=== PATIENT | female | born 1955 | race Caucasian/White ===

== ENCOUNTER 2018-06-10 21:16 | Emergency (ER) | payer BC, MEDICARE ==
[~2018-06-10] VITALS: Ht 162.6 cm; Wt 99.8 kg
[~2018-06-10 21:16] MED LIST: ACET-685 PO; DULO60CA7 PO; ESOM40CA PO; MAGN1TAB28 PO; NITR100C58 PO; OLME1TAB21 PO; PREG225C PO; RIVA20TA PO; SILV20CR13 TP
[2018-06-10] MEDS ORDERED: NS 1000ML 1,000 ML STA (21:22)
--- NOTE | 2018-06-10 21:29 | ER.PDOC ---
General Chief Complaint: Requesting Medical Care Stated Complaint: OVERDOSE TRAVEL OUT OF US: No Time seen by MD: 21:20 Source: patient, EMS Exam Limitations: no limitations History of Present Illness Initial Comments Pt is paraplegic, on a morphine pump. Her pump was adjusted today and she felt that after that change in dose she began feeling sleepy, when her came in he could not wake her up. EMS gave her two doses of narcane and she regained her consciousness Timing/Duration: 4-6 hours Severity: moderate Associated Symptoms: weakness Allergies: Uncoded Allergies: PENICILLIN (Allergy, Severe, BREAKS OUT IN RASH,FAINTING, 06/24/16) TAPE (Allergy, Intermediate, BREAKS OUT IN BLISTERS, 06/24/16) Home Meds Reported Medications Rivaroxaban (XARELTO) 20 Mg Tablet, 1 TAB PO DAILY, #30 TAB 11 Refills 06/24/16 Silver Sulfadiazine (SILVADENE) 20 Gm Cream..g., 1 APPLIC TP BID, #50 GRAM 06/24/16 Esomeprazole Magnesium (NEXIUM) 40 Mg Capsule.dr, 1 CAP PO BID, #30 CAP 5 Refills 06/24/16 Nitrofurantoin Monohyd/M-Cryst (MACROBID 100 MG CAPSULE) 100 Mg Capsule, 1 CAP PO BID, #10 CAP 06/24/16 Pregabalin (LYRICA) 225 Mg Capsule, 225 MG PO BID, CAPSULE 06/24/16 Magnesium Salicylate/Caffeine (Diurex Water Pills) 1 Each Tablet, 1 EACH PO BID , TABLET 06/24/16 Duloxetine Hcl (CYMBALTA) 60 Mg Capsule.dr, 1 CAP PO DAILY, #90 CAP 3 Refills 06/24/16 Olmesartan/Hydrochlorothiazide (BENICAR HCT 20-12.5 MG TABLET) 1 Each Tablet, 1 TAB PO DAILY, #30 TAB 5 Refills 06/24/16 Acetaminophen With Codeine (TYLENOL WITH CODEINE #3 TABLET) 1 Each Tablet, 2 TAB PO Q6, #30 TAB 06/24/16 Review of Systems Constitutional: malaise EENTM: no symptoms reported Respiratory: no symptoms reported Cardiovascular: no symptoms reported Gastrointestinal: no symptoms reported Genitourinary: no symptoms reported All Other Systems: Reviewed and Negative Physical Exam General Appearance: No Apparent Distress, WD/WN EENT: eyes nml inspection, nml ENT inspection, pharynx nml Neck: Non-Tender, Full Range of Motion, Supple, Normal Inspection Respiratory: chest non-tender, lungs clear, normal breath sounds CVS: reg rate & rhythm, no murmur, no gallop Gastrointestinal: Normal Bowel Sounds, No Organomegaly, No Pulsatile Mass Back: Normal Inspection, No CVA Tenderness 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, Other (paraplegic) Skin: Normal Color Lymphatic: No Adenopathy Results/Orders Results/Orders Laboratory Tests Test 06/10/18 00:00 06/10/18 21:25 Urine Collection Type UNKNOWN Urine Color YELLOW (YELLOW) Urine Appearance CLEAR (CLEAR) Urine Bilirubin NEGATIVE MG/DL (NEGATIVE) Urine Ketones NEGATIVE (NEGATIVE) Urine Specific [place] 1.015 (1.005-1.035) Urine pH 6 (5.0-6.0) Urine Protein NEGATIVE (NEGATIVE) Urine Urobilinogen NORMAL (NEGATIVE) Urine Nitrate NEGATIVE (NEGATIVE) Urine Leukocyte Esterase NEGATIVE (NEGATIVE) Urine Blood NEGATIVE (NEGATIVE) Urine Glucose NORMAL (NEGATIVE) Urine Opiates, Qualitative NEGATIVE ng/mL (CUT-OFF:300) Urine Methadone, Qualitative NEGATIVE ng/mL (CUT-OFF:300) Urine Amphetamine Qualitative NEGATIVE ng/mL (CUTOFF:1000) Urine Barbiturates, Qualitative NEGATIVE ng/mL (CUT-OFF:200) Urine Phencyclidine Screen NEGATIVE ng/mL (CUT-OFF:25) Urine MDMA (Ecstasy), Qualitative NEGATIVE ng/mL (CUT-OFF:300) Urine Benzodiazepines Screen NEGATIVE ng/mL (CUT-OFF:200) Urine Cocaine Qualitative NEGATIVE ng/mL (CUT-OFF:300) Ur Tetrahydrocannabinol (THC) Scrn NEGATIVE ng/mL (CUT-OFF:50) White Blood Count 17.2 10^3/uL (4.5-11.0) Red Blood Count 4.95 10^6/uL (4.00-5.20) Hemoglobin 13.0 g/dL (12.0-15.0) Hematocrit 40.9 % (36.0-46.0) Mean Corpuscular Volume 82.6 fL (78-100) Mean Corpuscular Hemoglobin 26.3 pg (26-34) Mean Corpuscular Hemoglobin Concent 31.8 g/dL (33-37) Red Cell Distribution Width 17.3 % (11.5-14.5) Platelet Count 379 10^3/uL (150-400) Mean Platelet Volume 9.3 fL (7.8-11.0) Neutrophils (%) (Auto) 79.5 % (41.0-85.0) Lymphocytes (%) (Auto) 12.5 % (24.0-44.0) Monocytes (%) (Auto) 6.2 % (5.0-12.0) Neutrophils # (Auto) 13.7 10^3/uL (1.8-7.7) Lymphocytes # (Auto) 2.2 10^3/uL (1.0-4.8) Monocytes # (Auto) 1.1 10^3/uL (0.3-0.8) Absolute Immature Granulocyte (auto 0.03 10^3 u/L (0-2) Eosinophils % 1.3 % (0.0-5.0) Basophils % 0.3 % (0.0-0.2) Basophils # 0.1 10^3/uL (0.0-0.1) Eosinophil Count 0.2 10^3/uL (0.0-0.2) Sodium Level 136 mmol/L (132-145) Potassium Level 3.8 mmol/L (3.6-5.2) Chloride Level 97.0 mmol/L (96-109) Carbon Dioxide Level 33.4 mmol/L (20.0-32) Anion Gap 9.4 Blood Urea Nitrogen 10 mg/dL (7-18) Creatinine 0.71 mg/dL (0.59-1.40) Estimated GFR () 101.3 (>/=60) BUN/Creatinine Ratio 14.0 Glucose Level 128 mg/dL (70-110) Calcium Level 9.2 mg/dL (8.4-10.5) Total Bilirubin 0.4 mg/dL (0.2-1.0) Aspartate Amino Transf (AST/SGOT) 19 U/L (0-35) Alanine Aminotransferase (ALT/SGPT) 36 U/L (12-78) Alkaline Phosphatase 79 U/L (50-136) Troponin I < 0.02 ng/mL (0.00-0.05) Total Protein 8.1 g/dL (6.4-8.2) Albumin 3.8 g/dL (3.4-5.0) Globulin 4.3 Salicylates Level 3.4 mg/dL (2.8-20.0) Acetaminophen Level < 2 ug/mL (10-30) Serum Alcohol < 3 mg/dL (3-50) Percent Immature Gran (Cell Imm) 0.20 % (0.00-0.50) Administered Medications Medications (Trade) Dose Ordered Sig/Kevin Route PRN Reason Start Time Stop Time Status Last Admin Dose Admin Sodium Chloride 1,000 ml @ 1,000 mls/hr Q1H STAT IV 06/10/18 21:22 06/10/18 22:21 DC 06/10/18 22:19 Departure Time of Disposition: 00:32 Disposition: 01 HOME, SELF-CARE Impression: Primary Impression: Altered mental status Additional Impression: Morphine overdose Condition: Stable Patient Instructions: Altered Mental Status Referrals: PCP,UNKNOWN (PCP) PRIMARY CARE PROVIDER Duration or Time Spent with Pa: 20 ROXANE BROWN MD Jun 10, 2018 21:29
--- NOTE | 2018-06-10 21:38 | PCM.EKG ---
[facility] Test Date: 2018-06-10 Test Time: 21:42:13 Pat Name: ROBYN MCKEON Department: Room: Gender: F Line Repairer Tower: [place] : [id number] Requested By: ROXANE FITZGERALD Order Number: [id number] Reading MD: Roxane Fitzgerald Measurements Intervals [place] Rate: 65 P: 75 MD: 160 QRS: 78 QRSD: 82 T: 70 QT: 394 QTc: 409 Interpretive Statements Normal sinus rhythm Normal ECG No previous ECG available for comparison Electronically Signed On 06-11-2018 0:50:27 CDT by Roxane Fitzgerald Please click the below link to view image of tracing.
[2018-06-10 21:44] LABS: BASOPHIL # 0.1 10^3/uL (0.0-0.1); BASOPHIL % 0.3 % (0.0-0.2); EOSINOPHIL # 0.2 10^3/uL (0.0-0.2); EOSINOPHIL % 1.3 % (0.0-5.0); LYMPHOCYTES # 2.2 10^3/uL (1.0-4.8); LYMPHOCYTES % 12.5 % (24.0-44.0); MEAN CELL HGB 26.3 pg (26-34); MEAN CELL HGB CONCENTRATION 31.8 g/dL (33-37); MEAN CORP VOLUME 82.6 fL (78-100); MEAN PLATELET VOLUME 9.3 fL (7.8-11.0); MONOCYTES # 1.1 10^3/uL (0.3-0.8); MONOCYTES % 6.2 % (5.0-12.0); NEUTROPHIL # 13.7 10^3/uL (1.8-7.7); NEUTROPHILS % 79.5 % (41.0-85.0); RED CELL DISTRIBUTION WIDTH 17.3 % (11.5-14.5); WHITE BLOOD CELL 17.2 10^3/uL (4.5-11.0)
[2018-06-10 22:01] VITALS: BP 115/51
[2018-06-10 22:06] LABS: ALANINE AMINOTRANSFERASE(ML) 36 U/L (12-78); ALKALINE PHOSPHATASE 79 U/L (50-136); ASPARTATE AMINO TRANSFERASE 19 U/L (0-35); CALCIUM 9.2 mg/dL (8.4-10.5); CARBON DIOXIDE 33.4 mmol/L (20.0-32); GLUCOSE 128 mg/dL (70-110)
[2018-06-10 22:07] LABS: ACETAMINOPHEN < 2 ug/mL (10-30)
[2018-06-10] MEDS ORDERED: NS 1000ML 1,000 ML ONE (22:15)
[2018-06-10 22:49] LABS: BILIRUBIN,URINE NEGATIVE (NEGATIVE); UROBILINOGEN,URINE NORMAL (NEGATIVE)
--- NOTE | 2018-06-10 22:50 | NUR ---
[facility] MED[facility] PT ASKED ABOUT TAKING HER NIGHT MEDICINES AT THIS TIME. DR. BROWN STATED PT COULD TAKE HER HOME MEDS.
[2018-06-10 22:54] LABS: APPEARANCE,URINE CLEAR (CLEAR); UA COLOR YELLOW (YELLOW)
[2018-06-10 23:01] VITALS: BP 109/60
[2018-06-11 00:02] VITALS: BP 115/59
--- NOTE | 2018-06-11 00:30 | DIREP ---
PROCEDURE:CT HEAD OR BRAIN W/O CONTRAST COMPARISON:GERALDO Estes, CT-BRAIN WO CONTRAST, 10/19/2016, 01:41 PM. INDICATIONS:AMS TECHNIQUE:CT images were created without intravenous contrast. FINDINGS: VENTRICLES:The ventricles are normal in size and configuration. CEREBRUM:Normal cerebral morphology with appropriate abraham white matter differentiation. CEREBELLUM:Negative. BRAINSTEM:Negative. BASAL CISTERNS:Negative. HEMORRHAGE:No MASS LESION:Partial calcified extra-axial mass lesion adjacent to the right parietal lobe near the vertex measuring 1.6 x 1.2 cm ACUTE INFARCT:No SKULL:Normal. SINUSES:Normal. OTHER:None CONCLUSION: Re-demonstration of the right parietal meningioma. No acute intracranial process identified. Overall, no significant interval change Dictated by: Ena Junior M.D. on 06/11/2018 at 00:28 AM
[2018-06-11 00:59] VITALS: BP 115/59
== END 2018-06-11 00:50 | disposition home or self-care (01) ==
LOC: EDBD 21:16 → ER 21:16
DX: T40.2X1A Poisoning by other opioids, accidental (unintentional), initial encounter (principal); R41.82 Altered mental status, unspecified; Z88.0 Allergy status to penicillin; Z88.8 Allergy status to other drugs, medicaments and biological substances; Z79.891 Long term (current) use of opiate analgesic; Z79.899 Other long term (current) drug therapy; Y92.89 Other specified places as the place of occurrence of the external cause
CPT/HCPCS: 36415; 70450; 80053; 80307; 81002; 84484; 85025; 93005; 96360; 96361; 99285; G0481; G0482; G0483; J7030